=== PATIENT | male | born 1945 | race Caucasian/White ===

== ENCOUNTER 2019-06-28 15:36 | Emergency (ER) | payer MEDICARE, OTHER ==
[~2019-06-28] VITALS: Ht 172.7 cm; Wt 86.2 kg
[2019-06-28] MEDS ORDERED: TAMS-3 PO (15:47)
[2019-06-28] MEDS ORDERED: LISI10TA5 PO (15:47)
[2019-06-28] MEDS ORDERED: ASPI81TA31 PO (15:47)
[2019-06-28] MEDS ORDERED: METF-442 PO (15:47)
[2019-06-28] MEDS ORDERED: POLY30DR LEFTEYE (15:47)
[2019-06-28] MEDS ORDERED: ATOR20TA PO (15:47)
[2019-06-28] MEDS ORDERED: CYAN-51 PO (15:47)
[2019-06-28] MEDS ORDERED: AMLO10TA7 PO (15:47)
--- NOTE | 2019-06-28 15:50 | NUR ---
ERMD at the bedside for eval.
--- NOTE | 2019-06-28 17:19 | NUR ---
Report given to consumer experience consultant, all belongings sent w/ pt. pt left ER in stable condition.
[2019-06-28 17:25] VITALS: BP 137/66
== END 2019-06-28 17:30 | disposition home or self-care (01) ==
LOC: ER 15:39
DX: S93.402A Sprain of unspecified ligament of left ankle, initial encounter (principal); E78.5 Hyperlipidemia, unspecified; E11.9 Type 2 diabetes mellitus without complications; Z79.82 Long term (current) use of aspirin; Z79.899 Other long term (current) drug therapy; X50.1XXA Overexertion from prolonged static or awkward postures, initial encounter; Y93.89 Activity, other specified; Y92.89 Other specified places as the place of occurrence of the external cause; Y99.8 Other external cause status
CPT/HCPCS: 73610; A4663